=== PATIENT | male | born 1995 ===

== ENCOUNTER → 2016-05-25 | Outpatient (CLI) | payer BC, OTHER ==
[~2016-05-25] MED LIST: MAGNEVIST IV PRN
--- NOTE | 2016-05-25 13:37 | DIAGNOSTIC IMAGING REPORT ---
FLUOROSCOPICALLY GUIDED RIGHT HIP ARTHROGRAM PRIOR TO MRI CLINICAL HISTORY: Right hip pain. FLUOROSCOPY TIME: 12 seconds. FINDINGS: The procedure, risks and benefits were discussed with the patient. The patient agreed to the procedure and informed written consent was obtained. The procedure was performed by Dr. Chau following a timeout. Skin overlying the right hip was prepped and draped in sterile fashion and local anesthesia was achieved with 1% lidocaine. Under intermittent fluoroscopic guidance, a 3 and 1/2 inch, 22-gauge spinal needle was directed into the right hip joint. One fluoroscopic image was obtained. Positioning within the joint space was confirmed with injection of a small amount of contrast. At this time, 10 cc of a mixture of 0.1 cc of gadolinium, 10 cc of Optiray 300 cc and 10 cc of normal saline was injected into the right hip joint. The needle was removed. The patient was transported to MRI. IMPRESSION: Fluoroscopically guided right hip arthrogram prior to MRI. Electronically signed by: Jorden Chau M.D. 05/25/2016 1:36 PM Dictated Date/Time: 05/25/2016 1:33 PM
--- NOTE | 2016-05-25 14:26 | DIAGNOSTIC IMAGING REPORT ---
MRI right hip RIGHT LOWER EXTREMITY JOINT W/ CLINICAL HISTORY: RT HIP PAIN Right pain TECHNIQUE: Multiaxial MRI right hip post arthrography COMPARISON STUDY: 08/14/2015 FINDINGS: Signal characteristics of all major osseous structures are unremarkable. There is no significant bone marrow replacing process. The lateral superior labrum demonstrates a focal tear coronal image 12. Is also slight degree of fibrillation of the anterior labral margin again at its superior aspect. All remaining components of the labrum are considered unremarkable. All major ligamentous and tendinous structures appear to be intact. All major muscular bundles are symmetric and unremarkable in overall signal character. IMPRESSION: 1. Focal tear mid superior lateral labral margin. 2. Fibrillation and/or fraying of the anterior margin of the superior/lateral labrum 3. All remaining components of the study are unremarkable. Electronically signed by: Dany Jeronimo M.D. 05/25/2016 2:25 PM Dictated Date/Time: 05/25/2016 2:18 PM
== END | disposition home or self-care (01) ==
LOC: C.MRIBC 12:42
PROVIDERS: ATTEND Physical Medicine & Rehabilitation Sports Medicine
DX: M25.551 Pain in right hip (principal)

== ENCOUNTER → 2016-05-26 | Outpatient (CLI) | payer BC, OTHER | END | disposition home or self-care (01) | LOC: C.RDSM 08:32 | PROVIDERS: ATTEND Physical Medicine & Rehabilitation Sports Medicine | DX: M25.551 Pain in right hip (principal) ==